=== PATIENT | male | born 1960 | race Caucasian/White ===

== ENCOUNTER 2018-02-18 06:35 | Inpatient (IN) | payer MEDICARE ==
[~2018-02-18] VITALS: Ht 180.3 cm; Wt 66.9 kg
[~2018-02-18 06:35] MED LIST: ARI2 PO; ASPI-1471 PO; ASPI81TA94 PO; ATR80PT PO; DOCU-202 PO; DOXY150T6 PO; FINA5TAB67 PO; INSU100C10 SQ; INSU100C14 SQ; INSU100I30 SQ; INSU100I30 SUBQ; INSU100V24 SQ; LANI ASDIRECTED; LANI SUBQ; LEVO-85 PO; LISI-374 PO; NO MEDS; OMEP-125 PO; OMEP-137 PO; PER PO; QUET300T PO; QUET400T PO; RANI-366 PO; TAMS0.4C25 PO; TAMS0.4C70 PO
--- NOTE | 2018-02-18 06:52 | ER Report ---
History and Physical Time Seen By MD: 06:51 Hx. of Stated Complaint: PATIENT STATES HE HAS BEEN HAVING PAIN IN HIS ABDOMEN, BILAT FLANKS, AND IN EPIGASTRIC AREA. PATIENT STATES HAVING NAUSEA, VOMITING AND DIARRHEA, HASN'T BEEN ABLE TO KEEP ANYTHING DOWN. HPI/ROS CHIEF COMPLAINT: Bilateral flank pain, lower abdominal pain, nausea, vomiting, diarrhea HISTORY OF PRESENT ILLNESS: Patient is a 57-year-old male here with complaints of bilateral flank pain, abdominal pain for the past several days. Patient has a history of diabetes, heart failure, intermittent angina. He reports that he has been depressed and has not been taking his medications since per his report. He reports intermittent chest pains which seem to be chronic in nature. He does self cath, and reports decreased appetite, intermittent fevers and chills, nausea and vomiting. Patient reports that he did eat yesterday and was unable to keep food down. He does report worsening fatigue, weakness but denies focal neurological deficits. He does admit to dyspnea especially on exertion. At baseline he usually takes insulin but has not been taking this since . Denies suicidal or homicidal ideations, thoughts of self- harm, aspirin or Tylenol ingestions. REVIEW OF SYSTEMS: Constitutional: + fever, + chills, + gen malaise Eyes: No discharge. ENT: No sore throat. Cardiovascular: + intermittent chest pain, no palpitations. Respiratory: No cough, + shortness of breath. Gastrointestinal: + lower abdominal pain and midepigastric pain, + nausea, + vomiting. Genitourinary: + self cath at baseline, no hematuria Musculoskeletal: + b/l flank pain Skin: No rashes. Neurological: No headache. Allergies: Coded Allergies: oyster extract (Verified Allergy, Intermediate, RASH, 02/07/16) Penicillins (Verified Allergy, Mild, 02/07/16) Home Meds Active Scripts Tamsulosin Hcl (TAMSULOSIN HCL) 0.4 Mg Cap.er.24h, 0.4 MG PO QDAY, #30 CAP 0 Refills Prov:ARSH JOEL MD 02/07/16 Insulin Glargine (LANTUS) 100 Unit/Ml Soln, 0 ASDIRECTED QAM, #3 CART 0 Refills Take 10 units SubQ in the morning and 20 units SubQ in the evening Prov:ARSH JOEL MD 02/07/16 Insulin Aspart (NOVOLOG) 100 Unit/1 Ml Cartridge, 100 UNIT SQ ACHS, #3 CART 0 Refills Take insulin dose based on your sliding scale at meals and at bedtime Prov:ARSH JOEL MD 02/07/16 Aripiprazole (ABILIFY) 2 Mg Tablet, 2 MG PO QDAY, #30 TAB 0 Refills Prov:ARSH JOEL MD 02/07/16 Quetiapine Fumarate (QUETIAPINE FUMARATE) 300 Mg Tablet, 300 MG PO QHS, #30 TAB 0 Refills Prov:ARSH JOEL MD 02/07/16 Reported Medications Ranitidine Hcl (ZANTAC) 150 Mg Tablet, 150 MG PO PRN PRN for INDIGESTION, TAB 12/06/15 Insulin Aspart (NOVOLOG) 100 Unit/1 Ml Cartridge, SQ SS 12/06/15 Tamsulosin Hcl (TAMSULOSIN HCL) 0.4 Mg Cap.er.24h, 0.4 MG PO, CAP 11/23/15 Lisinopril (LISINOPRIL) 40 Mg Tablet, 40 MG PO QDAY, TAB 11/23/15 Aspirin (ASPIRIN) 81 Mg Tab.chew, 81 MG PO QDAY, TAB.CHEW 11/23/15 Quetiapine Fumarate (QUETIAPINE FUMARATE) 300 Mg Tablet, 400 MG PO 11/04/15 Aripiprazole (ABILIFY) 2 Mg Tablet, 2 MG PO QDAY, TAB Start taking every morning beginning 11/15/2015 11/04/15 Insulin Glargine (LANTUS) 100 Unit/Ml Soln, 10 UNIT SUBQ QAM, ML 11/04/15 Insulin Glargine (LANTUS) 100 Unit/Ml Soln, 20 UNIT SUBQ QPM, ML 10/30/15 Hx Smoking: Yes (1/2 ppd x 5 years) Smoking Status: Current: Every Day Smoker Exposure to Second Hand Smoke?: Yes Hx Substance Use Disorder: Yes Hx Alcohol Use: Yes Constitutional Vital Sign - Last 24 Hours 02/18/18 02/18/18 06:39 07:28 Temp 97.5 Pulse 103 Resp 24 B/P (MAP) 180/99 Pulse Ox 98 O2 Delivery Room Air O2 Flow Rate 2.5 Physical Exam General Appearance: The patient is alert, has no immediate need for airway protection and no signs of toxicity. NAD, + fatigued Eyes: + right glass eye, left eye pupil equal and reactive ENT, Mouth: Mucous membranes are dry Respiratory: There are no retractions, lungs are clear to auscultation. Cardiovascular: Tachy, regular rhythm Gastrointestinal: Abdomen is soft and + diffusely, no masses, bowel sounds normal. Neurological: No focal neuro deficits Skin: Warm and dry, no rashes. Musculoskeletal: Neck is supple non tender, + b/l flank tenderness on palpation Extremities are nontender, nonswollen and have full range of motion. DIFFERENTIAL DIAGNOSIS: After history and physical exam differential diagnosis was considered for hyperglycemia, dehydration, viral syndrome,abdominal pain including but not limited to appendicitis, cholecystitis, gastritis and urinary tract infection, angina, pneumonia Medical Decision Making Data Points Result Diagram: 02/18/18 0716 02/18/18 0716 Laboratory Hematology Test 02/18/18 00:00 02/18/18 07:15 02/18/18 07:16 02/18/18 07:27 Salicylates Level < 10 mg/L Salicylate Last Dose Date unknown Acetaminophen Level < 10 ug/ml Serum Alcohol < 10 mg/dl Whole Blood Glucose 429 mg/DL (75-110) Red Blood Count 4.42 M/uL (4.00-5.60) Mean Corpuscular Volume 86.6 fL (80.0-96.0) Mean Corpuscular Hemoglobin 29.4 pg (26.0-33.0) Mean Corpuscular Hemoglobin Concent 33.9 g/dL (32.0-36.0) Red Cell Distribution Width 15.8 % (11.5-14.5) Mean Platelet Volume 7.7 fL (7.2-11.1) Neutrophils (%) (Auto) 65.7 % (39.4-72.5) Lymphocytes (%) (Auto) 23.5 % (17.6-49.6) Monocytes (%) (Auto) 8.1 % (4.1-12.4) Eosinophils (%) (Auto) 1.8 % (0.4-6.7) Basophils (%) (Auto) 0.9 % (0.3-1.4) Nucleated RBC Relative Count (auto) 0.0 /100WBC Neutrophils # (Auto) 6.1 K/uL (2.0-7.4) Lymphocytes # (Auto) 2.2 K/uL (1.3-3.6) Monocytes # (Auto) 0.8 K/uL (0.3-1.0) Eosinophils # (Auto) 0.2 K/uL (0.0-0.5) Basophils # (Auto) 0.1 K/uL (0.0-0.1) Nucleated RBC Absolute Count (auto) 0.00 K/uL Blood Gas Patient Temperature 97.5 DEGREES Venous Blood pH 7.35 (7.31-7.41) Venous Blood Partial Pressure CO2 35 mmHg Venous Blood Partial Pressure O2 36 mmHg Venous Blood HCO3 19 mmol/L Venous Blood Oxygen Saturation 68 % Venous Blood Base Excess -6 mmol/L Oxygen Liters/Minute Room air Sodium Level 135 mmol/L (137-145) Potassium Level 4.4 mmol/L (3.5-5.0) Chloride Level 99 mmol/L (98-107) Carbon Dioxide Level 22 mmol/L (22-30) Blood Urea Nitrogen 65 mg/dl (9-21) Creatinine 2.80 mg/dl (0.66-1.25) Glomerular Filtration Rate Calc 23.5 Random Glucose 492 mg/dl (75-110) Osmolality 327 mOSM/K (275-295) Lactate 2.2 mmol/L (0.7-2.1) Calcium Level 10.0 mg/dl (8.4-10.2) Total Bilirubin 0.3 mg/dl (0.2-1.3) Aspartate Amino Transf (AST/SGOT) 28 U/L (0-35) Alanine Aminotransferase (ALT/SGPT) 13 U/L (0-56) Alkaline Phosphatase 216 U/L (0-126) Troponin I 0.025 ng/ml Total Protein 8.9 g/dl (6.3-8.2) Albumin 4.1 g/dl (3.5-5.0) Lipase 475 U/L (23-300) Acetone, Qualitative Negative Urine Color Straw Urine Clarity Clear Urine pH 6.0 pH (4.8-9.5) Urine Specific [place] 1.011 Urine Protein 100 mg/dL (NEGATIVE) Urine Glucose (UA) 500 mg/dL (NEGATIVE) Urine Ketones Negative mg/dL (NEGATIVE) Urine Blood Small (NEGATIVE) Urine Nitrite Negative (NEGATIVE) Urine Bilirubin Negative (NEGATIVE) Urine Urobilinogen Negative mg/dL (0.2-1.9) Urine Leukocyte Esterase Small (NEGATIVE) Urine RBC 3 /HPF (0-2/HPF) Urine WBC 39 /HPF (0-5/HPF) Urine Squamous Epithelial Cells None /LPF (</=FEW) Urine Bacteria Few /HPF (NONE-FEW) Urine Mucus None /HPF (NONE-FEW) Urine Opiates Screen Negative Urine Barbiturates Screen Negative Ur Tricyclic Antidepressants Screen Negative Urine Phencyclidine Screen Negative Urine Amphetamines Screen Positive Urine Benzodiazepines Screen Negative Urine Cocaine Screen Negative Urine Cannabinoids Screen Negative Chemistry Test 02/18/18 00:00 02/18/18 07:15 02/18/18 07:16 02/18/18 07:27 Salicylates Level < 10 mg/L Salicylate Last Dose Date unknown Acetaminophen Level < 10 ug/ml Serum Alcohol < 10 mg/dl Whole Blood Glucose 429 mg/DL (75-110) White Blood Count 9.3 k/uL (4.5-11.0) Red Blood Count 4.42 M/uL (4.00-5.60) Hemoglobin 13.0 g/dL (14.0-18.0) Hematocrit 38.3 % (42.0-52.0) Mean Corpuscular Volume 86.6 fL (80.0-96.0) Mean Corpuscular Hemoglobin 29.4 pg (26.0-33.0) Mean Corpuscular Hemoglobin Concent 33.9 g/dL (32.0-36.0) Red Cell Distribution Width 15.8 % (11.5-14.5) Platelet Count 321 K/uL (150-450) Mean Platelet Volume 7.7 fL (7.2-11.1) Neutrophils (%) (Auto) 65.7 % (39.4-72.5) Lymphocytes (%) (Auto) 23.5 % (17.6-49.6) Monocytes (%) (Auto) 8.1 % (4.1-12.4) Eosinophils (%) (Auto) 1.8 % (0.4-6.7) Basophils (%) (Auto) 0.9 % (0.3-1.4) Nucleated RBC Relative Count (auto) 0.0 /100WBC Neutrophils # (Auto) 6.1 K/uL (2.0-7.4) Lymphocytes # (Auto) 2.2 K/uL (1.3-3.6) Monocytes # (Auto) 0.8 K/uL (0.3-1.0) Eosinophils # (Auto) 0.2 K/uL (0.0-0.5) Basophils # (Auto) 0.1 K/uL (0.0-0.1) Nucleated RBC Absolute Count (auto) 0.00 K/uL Blood Gas Patient Temperature 97.5 DEGREES Venous Blood pH 7.35 (7.31-7.41) Venous Blood Partial Pressure CO2 35 mmHg Venous Blood Partial Pressure O2 36 mmHg Venous Blood HCO3 19 mmol/L Venous Blood Oxygen Saturation 68 % Venous Blood Base Excess -6 mmol/L Oxygen Liters/Minute Room air Glomerular Filtration Rate Calc 23.5 Osmolality 327 mOSM/K (275-295) Lactate 2.2 mmol/L (0.7-2.1) Calcium Level 10.0 mg/dl (8.4-10.2) Total Bilirubin 0.3 mg/dl (0.2-1.3) Aspartate Amino Transf (AST/SGOT) 28 U/L (0-35) Alanine Aminotransferase (ALT/SGPT) 13 U/L (0-56) Alkaline Phosphatase 216 U/L (0-126) Troponin I 0.025 ng/ml Total Protein 8.9 g/dl (6.3-8.2) Albumin 4.1 g/dl (3.5-5.0) Lipase 475 U/L (23-300) Acetone, Qualitative Negative Urine Color Straw Urine Clarity Clear Urine pH 6.0 pH (4.8-9.5) Urine Specific [place] 1.011 Urine Protein 100 mg/dL (NEGATIVE) Urine Glucose (UA) 500 mg/dL (NEGATIVE) Urine Ketones Negative mg/dL (NEGATIVE) Urine Blood Small (NEGATIVE) Urine Nitrite Negative (NEGATIVE) Urine Bilirubin Negative (NEGATIVE) Urine Urobilinogen Negative mg/dL (0.2-1.9) Urine Leukocyte Esterase Small (NEGATIVE) Urine RBC 3 /HPF (0-2/HPF) Urine WBC 39 /HPF (0-5/HPF) Urine Squamous Epithelial Cells None /LPF (</=FEW) Urine Bacteria Few /HPF (NONE-FEW) Urine Mucus None /HPF (NONE-FEW) Urine Opiates Screen Negative Urine Barbiturates Screen Negative Ur Tricyclic Antidepressants Screen Negative Urine Phencyclidine Screen Negative Urine Amphetamines Screen Positive Urine Benzodiazepines Screen Negative Urine Cocaine Screen Negative Urine Cannabinoids Screen Negative Toxicology Test 02/18/18 00:00 02/18/18 07:16 02/18/18 07:27 Salicylates Level < 10 mg/L Salicylate Last Dose Date unknown Acetaminophen Level < 10 ug/ml Serum Alcohol < 10 mg/dl Acetone, Qualitative Negative Urine Opiates Screen Negative Urine Barbiturates Screen Negative Ur Tricyclic Antidepressants Screen Negative Urine Phencyclidine Screen Negative Urine Amphetamines Screen Positive Urine Benzodiazepines Screen Negative Urine Cocaine Screen Negative Urine Cannabinoids Screen Negative Urinalysis Test 02/18/18 07:27 Urine Color Straw Urine Clarity Clear Urine pH 6.0 pH (4.8-9.5) Urine Specific [place] 1.011 Urine Protein 100 mg/dL (NEGATIVE) Urine Glucose (UA) 500 mg/dL (NEGATIVE) Urine Ketones Negative mg/dL (NEGATIVE) Urine Blood Small (NEGATIVE) Urine Nitrite Negative (NEGATIVE) Urine Bilirubin Negative (NEGATIVE) Urine Urobilinogen Negative mg/dL (0.2-1.9) Urine Leukocyte Esterase Small (NEGATIVE) Urine RBC 3 /HPF (0-2/HPF) Urine WBC 39 /HPF (0-5/HPF) Urine Squamous Epithelial Cells None /LPF (</=FEW) Urine Bacteria Few /HPF (NONE-FEW) Urine Mucus None /HPF (NONE-FEW) EKG/Imaging EKG Interpretation Test Reason : CP and SOB Blood Pressure : / mmHG Vent. Rate : 103 BPM Atrial Rate : 103 BPM P-R Int : 164 ms QRS Dur : 082 ms QT Int : 348 ms P-R-T Axes : 088 093 083 degrees QTc Int : 455 ms Sinus tachycardia Right atrial enlargement Rightward axis Pulmonary disease pattern Abnormal ECG When compared with ECG of 09-DEC-2015 10:19, No significant change was found Confirmed by ROBYN KRISHNAMURTHY ([id number]) on 02/18/2018 9:20:39 AM Referred By: Confirmed By:ROBYN KRISHNAMURTHY Monitor Interpretation: Sinus Tachycardia Imaging ABDOMEN/PELVIS W/O CONTRAST HISTORY: Abdominal pain and flank pain. TECHNIQUE: CT abdomen and pelvis without intravenous contrast. One of the following dose optimization techniques was utilized in the performance of this exam: Automated exposure control; adjustment of the mA and/or kV according to the patient's size; or use of an iterative reconstruction technique. Specific details can be referenced in the facility's radiology CT exam operational policy. CONTRAST: None. Please note, lack of IV contrast limits evaluation of solid organs. COMPARISON: None available. FINDINGS: Visualized lung bases: Negative. Hepatobiliary: Gallbladder surgically absent. Otherwise negative. Spleen: Negative. Adrenals: Negative. Pancreas: Negative. Kidneys/: Moderate to severe bilateral hydroureteronephrosis extending to the UVJ's. Mild/moderate heterogeneous bladder wall thickening with bladder trabeculation and multiple small bladder diverticula. Prostate is normal in size. No gross focal bladder mass. No visualized urolithiasis. There is mild stranding surrounding the kidneys, left greater than right. GI: Mild sigmoid diverticulosis without evidence for diverticulitis. Otherwise negative. Appendix is unremarkable. Vessels/spaces/nodes: Minimal atherosclerosis. No visualized lymphadenopathy. Bones/soft tissues: Negative. IMPRESSION: 1. Moderate to severe bilateral hydroureteronephrosis which is likely related to chronic bladder outlet obstruction given bladder trabeculation, wall thickening, and small diverticula. Etiology for the obstruction is unknown. The prostate is grossly normal in size. 2. Mild perinephric stranding, left greater than right. All this is nonspecific, recommend correlation with urinalysis to exclude infection. 3. No additional findings to explain the patient's clinical symptoms. 4. Incidental/chronic findings, as above. 2 VIEWS CHEST INDICATION: History of anxiety, shortness of breath. Smoker COMPARISON: X-ray examination of the chest October 2015 FINDINGS: Cardiac silhouette is within normal limits. There is no evidence of the new infiltrate, consolidation, effusion or pneumothorax. Mild spondylotic changes are seen without acute bony finding. Overall, stable exam. IMPRESSION: 1. No acute cardiopulmonary process. ED Course/Re-evaluation ED Course Patient is a 57-year-old male here with complaints of intermittent chest pains, shortness breath, diffuse abdominal pains, bilateral flank pain, nausea, vomiting, medication noncompliance since , depression without suicidal or homicidal ideations. Patient reports decreased appetite, decreased b y mouth intake, abdominal flank pains which started 3-4 days ago. Patient is a diabetic, insulin dependent with a history of heart failure and coronary artery disease. Patient reports that he has not been taking his medications since . Patient reports general malaise, fatigue, dehydration. He does self catheterize at baseline and denies blood in the stools or urine. He denies recent alcohol or drug use. Patient was noted to have elevated lipase, poor kidney function with bilateral hydronephrosis and likely bladder outlet obstruction with possible genitourinary infection. He was also noted to be hyperglycemic in the setting of diabetes and medication noncompliance. Patient was started on an insulin drip, given gentle hydration due to history of heart failure. I discussed the patient with Dr. Krishnamurthy who accepted the patient to hospitalist service for optimization. Chest x-ray showed no acute findings. Patient was stable at time of admission. Decision to Disposition Date: Feb 18, 2018 Decision to Disposition Time: 09:31 Depart Departure Latest Vital Signs Vital Signs Date Time Temp Pulse Resp B/P (MAP) Pulse Ox O2 Delivery O2 Flow Rate FiO2 02/18/18 07:28 2.5 02/18/18 06:39 97.5 103 24 180/99 98 Room Air Impression: Primary Impression: Type 2 diabetes mellitus with hyperglycemia Additional Impressions: UTI (urinary tract infection) Nausea & vomiting Hydronephrosis Condition: Improved Disposition: Admitted from ER Referrals: DIANN WOOTEN DO (PCP) Problem Qualifiers COREY KAYE DO Feb 18, 2018 06:52
[2018-02-18] MEDS ORDERED: NS(*) 0.9% 1000 ML BAG 1,000 ML IV ONE ×2 (06:59→08:45)
[2018-02-18] MEDS ORDERED: ONDANSETRON 4 MG/2 ML VIAL IVP ONE ×2 (07:00→08:45)
[2018-02-18] MEDS ORDERED: fentaNYL CITR 100 MCG/2 ML AMP IVP ONE (07:00)
--- NOTE | 2018-02-18 07:04 | EKG ---
FACILITY: [facility] - [place] PATIENT NAME: RACHEL GIBSON : [id number] MR: [id number] V: [id number] EXAM DATE: ORDERING PHYSICIAN: COREY KAYE TECHNOLOGIST: Test Reason : CP and SOB Blood Pressure : / mmHG Vent. Rate : 103 BPM Atrial Rate : 103 BPM P-R Int : 164 ms QRS Dur : 082 ms QT Int : 348 ms P-R-T Axes : 088 093 083 degrees QTc Int : 455 ms Sinus tachycardia Right atrial enlargement Rightward axis Pulmonary disease pattern Abnormal ECG When compared with ECG of 09-DEC-2015 10:19, No significant change was found Confirmed by ROBYN KRISHNAMURTHY ([id number]) on 02/18/2018 9:20:39 AM Referred By: Confirmed By:ROBYN KRISHNAMURTHY
[2018-02-18] MEDS ORDERED: IOPAMIDOL 76% 100 ML INFUS BTL 0 ML ONE (07:14)
[2018-02-18 07:26] LABS: PLATELET COUNT, AUTOMATED 321 K/uL (150-450)
[2018-02-18] MEDS ORDERED: INS HUM REG* 100 U/ML(ER ONLY) 100 UNIT in NS(*) 0.9% 100 ML BAG 99 ML IVPB ONE (07:40)
[2018-02-18] MEDS ORDERED: LORazepam 2 MG/ML VIAL IVP ONE (08:35)
--- NOTE | 2018-02-18 09:11 | RADIOLOGY IMAGING REPORT ---
[facility] PATIENT NAME: Chivo Wolff : 1960 MR: [id number] V: [id number] EXAM DATE: ORDERING PHYSICIAN: COREY KAYE TECHNOLOGIST: Location: [facility] Patient: Chivo Wolff : 1960 Visit/Account:[id number] Date of Sevice: 02/18/2018 2 VIEWS CHEST INDICATION: History of anxiety, shortness of breath. Smoker COMPARISON: X-ray examination of the chest October 2015 FINDINGS: Cardiac silhouette is within normal limits. There is no evidence of the new infiltrate, consolidatio n, effusion or pneumothorax. Mild spondylotic changes are seen without acute bony finding. Overall, stable exam. IMPRESSION: 1. No acute cardiopulmonary process. Report Dictated By: Brenton Parker MD at 02/18/2018 9:05 AM Report E-Signed By: Brenton Parker MD at 02/18/2018 9:06 AM WSN:[id number]
--- NOTE | 2018-02-18 09:22 | RADIOLOGY IMAGING REPORT ---
FACILITY: [facility] PATIENT NAME: Chivo Wolff : 1960 MR: [id number] V: [id number] EXAM DATE: ORDERING PHYSICIAN: COREY KAYE TECHNOLOGIST: Location: [facility] [place] Patient: Chivo Wolff : 1960 Visit/Account:[id number] Date of Sevice: 02/18/2018 ABDOMEN/PELVIS W/O CONTRAST HISTORY: Abdominal pain and flank pain. TECHNIQUE: CT abdomen and pelvis without intravenous contrast. One of the following dose optimization techniques was utilized in the performance of this exam: Autom ated exposure control; adjustment of the mA and/or kV according to the patient's size; or use of an i terative reconstruction technique. Specific details can be referenced in the facility's radiology C T exam operational policy. CONTRAST: None. Please note, lack of IV contrast limits evaluation of solid organs. COMPARISON: None available. FINDINGS: Visualized lung bases: Negative. Hepatobiliary: Gallbladder surgically absent. Otherwise negative. Spleen: Negative. Adrenals: Negative. Pancreas: Negative. Kidneys/: Moderate to severe bilateral hydroureteronephrosis extending to the UVJ's. Mild/moderate heterogeneous bladder wall thickening with bladder trabeculation and multiple small bladder divertic liya. Prostate is normal in size. No gross focal bladder mass. No visualized urolithiasis. There is mi ld stranding surrounding the kidneys, left greater than right. GI: Mild sigmoid diverticulosis without evidence for diverticulitis. Otherwise negative. Appendix is unremarkable. Vessels/spaces/nodes: Minimal atherosclerosis. No visualized lymphadenopathy. Bones/soft tissues: Negative. IMPRESSION: 1. Moderate to severe bilateral hydroureteronephrosis which is likely related to chronic bladder outl et obstruction given bladder trabeculation, wall thickening, and small diverticula. Etiology for the obstruction is unknown. The prostate is grossly normal in size. 2. Mild perinephric stranding, left greater than right. All this is nonspecific, recommend correlatio n with urinalysis to exclude infection. 3. No additional findings to explain the patient's clinical symptoms. 4. Incidental/chronic findings, as above. Report Dictated By: Felton Thurston MD at 02/18/2018 9:11 AM Report E-Signed By: Felton Thurston MD at 02/18/2018 9:17 AM WSN:[id number]
[2018-02-18 09:58] VITALS: BP 131/102
[2018-02-18] MEDS ORDERED: RANITIDINE HCL 150 MG TAB PO PRN (11:15)
--- NOTE | 2018-02-18 11:26 | History & Physical ---
History of Present Illness Chief Complaint This patient presented to the emergency room complaining of not feeling good overall. He reports that he has not taken any of his medications since . History Problems: (1) Diabetic nephropathy Status: Acute (2) Benign hypertension Status: Chronic (3) Hyperlipemia Status: Chronic (4) HTN (hypertension) Status: Chronic (5) Porcelain gallbladder Status: Resolved (6) Bipolar disorder Status: Chronic (7) T2DM (type 2 diabetes mellitus) Status: Chronic (8) Hydronephrosis Status: Acute Home Meds Active Scripts Tamsulosin Hcl (TAMSULOSIN HCL) 0.4 Mg Cap.er.24h, 0.4 MG PO QDAY, #30 CAP 0 Refills Prov:ARSH JOEL MD 02/07/16 Insulin Glargine (LANTUS) 100 Unit/Ml Soln, 0 ASDIRECTED QAM, #3 CART 0 Refills Take 10 units SubQ in the morning and 20 units SubQ in the evening Prov:ARSH JOEL MD 02/07/16 Insulin Aspart (NOVOLOG) 100 Unit/1 Ml Cartridge, 100 UNIT SQ ACHS, #3 CART 0 Refills Take insulin dose based on your sliding scale at meals and at bedtime Prov:ARSH JOEL MD 02/07/16 Aripiprazole (ABILIFY) 2 Mg Tablet, 2 MG PO QDAY, #30 TAB 0 Refills Prov:ARSH JOEL MD 02/07/16 Quetiapine Fumarate (QUETIAPINE FUMARATE) 300 Mg Tablet, 300 MG PO QHS, #30 TAB 0 Refills Prov:ARSH JOEL MD 02/07/16 Reported Medications Ranitidine Hcl (ZANTAC) 150 Mg Tablet, 150 MG PO PRN PRN for INDIGESTION, TAB 12/06/15 Insulin Aspart (NOVOLOG) 100 Unit/1 Ml Cartridge, SQ SS 12/06/15 Tamsulosin Hcl (TAMSULOSIN HCL) 0.4 Mg Cap.er.24h, 0.4 MG PO, CAP 11/23/15 Lisinopril (LISINOPRIL) 40 Mg Tablet, 40 MG PO QDAY, TAB 11/23/15 Aspirin (ASPIRIN) 81 Mg Tab.chew, 81 MG PO QDAY, TAB.CHEW 11/23/15 Quetiapine Fumarate (QUETIAPINE FUMARATE) 300 Mg Tablet, 400 MG PO 11/04/15 Aripiprazole (ABILIFY) 2 Mg Tablet, 2 MG PO QDAY, TAB Start taking every morning beginning 11/15/2015 11/04/15 Insulin Glargine (LANTUS) 100 Unit/Ml Soln, 10 UNIT SUBQ QAM, ML 11/04/15 Insulin Glargine (LANTUS) 100 Unit/Ml Soln, 20 UNIT SUBQ QPM, ML 10/30/15 Allergies: Coded Allergies: oyster extract (Verified Allergy, Intermediate, RASH, 02/07/16) Penicillins (Verified Allergy, Mild, 02/07/16) Patient History: Diabetes mellitus in brother MOTHER, BROTHER OR SISTER FH: diabetes mellitus CHILD FH: liver cancer FH: obesity CHILD Hx Smoking: Yes (1/2 ppd x 5 years) Smoking Status: Current: Every Day Smoker Exposure to Second Hand Smoke?: Yes Caffeine Intake: Coffee, Soda Caffeine/Cups Per Day: 3 cups coffee, 1-2 diet soda/day Hx Alcohol Use: Yes (01/31/18 ) Alcohol Used: Beer, Liquor Alcohol Withdrawl Symptoms: Agitation Hx Substance Use Disorder: Yes (meth one week ago ) Social Drug Use: Occasional Social Drugs: Meth, Amphetamines, Cocaine History of IV Drug Use: No Review of Systems All Systems Reviewed/Normal: Yes Exam Vital Signs Vital Signs Date Time Temp Pulse Resp B/P (MAP) Pulse Ox O2 Delivery O2 Flow Rate FiO2 02/18/18 10:53 97 02/18/18 10:22 Room Air 02/18/18 09:58 97.8 93 14 131/102 (112) 2.0 Neuro: No Gross deficits Eyes: PERRLA Cardiovascular: Regular Rate and Rhythm Respiratory: Clear to Auscultation GI: Abd Soft and Non-Tender Extremities: No Edema Integumentary: No Cyanosis Medical Decision Making Data Points Result Diagram: 02/18/1871502/18/18715 EKG / Imaging Imaging CT scan reviewed. Assessment and Plan Problems: (1) ARF (acute renal failure) Assessment & Plan: He does have an elevated creatinine above his baseline. We have started him on IV fluids. (2) Hydronephrosis Status: Acute Assessment & Plan: He does have bilateral hydronephrosis, but this appears to be a chronic issue that dates back to at least 2016. (3) Type 2 diabetes mellitus with hyperglycemia Status: Acute Assessment & Plan: He is supposed to be on chronic treatment with Lantus and Novolog. We have started him back on his previous dose of Lantus and placed him on sliding scale level #3. (4) Benign hypertension Status: Chronic Assessment & Plan: He is on chronic treatment with lisinopril, which has been held secondary to his renal function. (5) Bipolar disorder Status: Chronic Assessment & Plan: He is on chronic treatment with quetiapine. Venous Thromboembolism Antithrombotics Is Pt On Any Antithrombotics?: No Exam Sepsis Risk: No Definite Risk ROBYN KRISHNAMURTHY DO Feb 18, 2018 11:26
[2018-02-18] MEDS: NS(*) 0.9% 1000 ML BAG 1,000 ML IV PRN ×2 (11:56→23:11)
[2018-02-18] MEDS: INSULIN HUM LISPRO 100 UN/ML 3 ML VIAL SUBQ PRN ×3 (12:18→20:30)
[2018-02-18] MEDS ORDERED: FOLI-68 PO (13:28)
[2018-02-18] MEDS ORDERED: INSU300I SUBQ (13:28)
[2018-02-18] MEDS ORDERED: FURO20TA19 PO (13:28)
[2018-02-18] MEDS ORDERED: MULT-1167 PO (13:28)
[2018-02-18] MEDS ORDERED: CAR6.25 PO (13:28)
[2018-02-18] MEDS ORDERED: FINA5TAB67 PO (13:28)
[2018-02-18] MEDS ORDERED: INSULIN GLARGINE 100 U/ML 3 ML PEN SUBQ SCH (17:00)
[2018-02-18] MEDS: ACETAMINOPHEN 500 MG TAB PO PRN (18:31)
[2018-02-18 18:55] VITALS: BP 143/94
[2018-02-18] MEDS ORDERED: QUEtiapine FUM 100 MG TAB PO SCH (21:00)
[2018-02-19 01:57] VITALS: BP 114/69
[2018-02-19 05:30] LABS: PLATELET COUNT, AUTOMATED 232 K/uL (150-450)
[2018-02-19 07:19] VITALS: BP 148/82
[2018-02-19] MEDS ORDERED: ARIPiprazole 2 MG TAB PO SCH (09:00)
[2018-02-19] MEDS ORDERED: TAMSULOSIN HCL 0.4 MG CAP PO SCH (09:00)
[2018-02-19] MEDS: ASPIRIN 81 MG CHEW PO SCH (09:08)
[2018-02-19] MEDS: ACETAMINOPHEN 500 MG TAB PO PRN ×2 (09:08→19:19)
[2018-02-19] MEDS: ENOXAPARIN 40 MG/0.4ML SYR SC SCH (09:09)
[2018-02-19] MEDS: INSULIN GLARGINE 100 U/ML 3 ML PEN SUBQ SCH (09:09)
--- NOTE | 2018-02-19 10:46 | Hospitalist Progress Note ---
Subjective Progress Notes Subjective He reports overall improvement. However, he is very sleepy this morning secondary to the Seroquel being restarted last night. Physical Exam Vital Signs Date Time Temp Pulse Resp B/P (MAP) Pulse Ox O2 Delivery O2 Flow Rate FiO2 02/19/18 07:19 97.0 78 16 148/82 (104) 96 Room Air 02/18/18 09:58 2.0 Intake and Output 02/19/18 07:00 Intake Total 2998.5 ml Output Total 1720 ml Balance 1278.5 ml Intake Oral 970 ml IV Total 2028.5 ml Output Urine Total 1720 ml # Voids 5 General Appearance: Alert (Initially, he was fighting sleep, but became more alert), Awake, No Acute Distress Neuro: No Gross deficits (Answers questions appropriately. Normal affect. He reports that the voices he constantly hears is present, but not bothersome. He knows why he is in the hospital and gives accurate medical history. He is calm and cooperative.) Cardiovascular: Regular Rate and Rhythm Respiratory: Clear to Auscultation GI: Other (Soft, non-distended. He does have some suprapubic tenderness with palpation.) : Other (Bilateral flank tenderness.) Extremities: No Edema Integumentary: No Jaundice, No Cyanosis Result Diagram: 02/19/1851702/19/18517 Monitor Interpretation: Sinus Tachycardia Assessment and Plan Problems: (1) ARF (acute renal failure) Assessment & Plan: He presented with bilateral flank pain and abdominal pain for a couple of days. His creatinine was elevated to 2.8, osmolality was elevated at 327, lactate was elevated at 2.2 and he had worsening bilateral hydronephrosis on CT. He has been hydrated with 3 liters of IVF and is creatinine is down to 2.0. His creatinine was 1.6 to 1.8 in 2016. Will saline lock. See below. (2) Hydronephrosis Status: Acute Assessment & Plan: He does have bilateral hydronephrosis which is a chronic issue that dates back to at least 2016. It is thought to be related to bladder outlet obstruction. He self caths 4-5 times per day. However, the CT from admission showed worsening hydronephrosis. I spoke with Dr. Okeefe (Urology) and he recommends placing a Meneses catheter and having the patient follow up in clinic. The patient is agreeable to this plan. (3) Hyperosmolar non-ketotic state in patient with type 2 diabetes mellitus Status: Acute Assessment & Plan: Secondary to non-compliance. He stopped his Lantus over Thanksgiving. He was started back on Lantus 20 units in the evening and 10 units in the morning. However, his glucose is 102 this morning, so will stop the evening Lantus for now and decrease the SSI from level 3 to 1. (4) Bipolar disorder Status: Chronic Assessment & Plan: He is on chronic treatment with quetiapine, but stopped over Thanksgi. Dr. Foley recommends restarting at a low dose, so will change from 300mg to 50mg HS (5) Benign hypertension Status: Chronic Assessment & Plan: He is on chronic treatment with lisinopril, which has been held secondary to his renal function. (6) HFrEF (heart failure with reduced ejection fraction) Status: Chronic Assessment & Plan: He reports that his EF is about 20-30%. He denies orthopnea. Lungs are clear and no edema. He has received 2 liters of IVF, so will follow closely for symptoms of exacerbation. Will try to get the last note from his Clinician Oncology. (7) CAD (coronary artery disease) Status: Chronic Assessment & Plan: He has been started on ASA. Exam Sepsis Risk: No Definite Risk WANDA BRADSHAW MD Feb 19, 2018 10:46
[2018-02-19] MEDS: INSULIN HUM LISPRO 100 UN/ML 3 ML VIAL SUBQ PRN ×3 (11:49→20:30)
[2018-02-19 17:12] VITALS: BP_SYST 148; BP_SYST 176; BP_DIAS 82; BP_DIAS 94
[2018-02-19 19:33] VITALS: BP 183/112
[2018-02-19] MEDS: QUEtiapine FUM 25 MG TAB PO SCH (20:29)
[2018-02-19] MEDS: NS(*) 0.9% 1000 ML BAG 1,000 ML IV PRN ×2 (20:33→20:34)
[2018-02-19 23:45] VITALS: BP 131/64
[2018-02-20] MEDS: NS(*) 0.9% 1000 ML BAG 1,000 ML IV PRN ×4 (01:14→19:19)
[2018-02-20 06:56] VITALS: BP 185/103
[2018-02-20] MEDS: INSULIN HUM LISPRO 100 UN/ML 3 ML VIAL SUBQ PRN ×4 (07:32→20:07)
[2018-02-20 07:53] LABS: PLATELET COUNT, AUTOMATED 252 K/uL (150-450)
[2018-02-20] MEDS ORDERED: INFLUENZA VIRUS VAC 0.5ML SYR IM ONLY ONE (09:00)
[2018-02-20] MEDS: INSULIN GLARGINE 100 U/ML 3 ML PEN SUBQ SCH (09:28)
[2018-02-20] MEDS: ENOXAPARIN 40 MG/0.4ML SYR SC SCH (09:28)
[2018-02-20] MEDS: ASPIRIN 81 MG CHEW PO SCH (09:28)
--- NOTE | 2018-02-20 09:28 | Hospitalist Progress Note ---
Subjective Progress Notes Subjective 57M admitted for hyperglycemia, FÉLIX. LY overnight, having increased UOP after Meneses placed. Discussed we will need to continue IV fluid while postobstructive diuresis resolves. Patient Complains of: Gastrointestinal: No Nausea, No Vomiting Physical Exam Vital Signs Date Time Temp Pulse Resp B/P (MAP) Pulse Ox O2 Delivery O2 Flow Rate FiO2 02/20/18 06:56 98.1 84 17 185/103 (130) 94 Room Air 02/18/18 09:58 2.0 Intake and Output 02/20/18 07:00 Intake Total 5322 ml Output Total 3325 ml Balance 1997 ml Intake Oral 2322 ml IV Total 3000 ml Output Urine Total 3325 ml # Voids 1 General Appearance: Alert, Awake, No Acute Distress Neuro: No Gross deficits ENT: Normal Cardiovascular: Normal Rhythm & Peripheral Pulses (2/6 murmur LLS border) Respiratory: No Respiratory Distress GI: Soft and Non-Tender : Normal (+ Meneses) Musculoskeletal: No Weakness/Pain Integumentary: Skin Intact without Lesion / Mass Result Diagram: 02/20/18 0744 02/20/18 0744 Monitor Interpretation: Sinus Tachycardia Assessment and Plan Problems: (1) ARF (acute renal failure) Assessment & Plan: He presented with bilateral flank pain and abdominal pain for a couple of days. His creatinine was elevated to 2.8, osmolality was elevated at 327, lactate was elevated at 2.2 and he had worsening bilateral hydronephrosis on CT. He was hydrated with 3 liters of IVF and creatinine decreased. His creatinine was 1.6 to 1.8 in 2016. See below. (2) Hydronephrosis Status: Acute Assessment & Plan: He does have bilateral hydronephrosis which is a chronic issue that dates back to at least 2016. It is thought to be related to bladder outlet obstruction. He self caths 4-5 times per day. However, the CT from admission showed worsening hydronephrosis. I spoke with Dr. Okeefe (Urology) and he recommends placing a Meneses catheter and having the patient follow up in clinic. The patient is agreeable to this plan. Ongoing postobstructive diuresis, continue IV fluids and UOP measurements. (3) Hyperosmolar non-ketotic state in patient with type 2 diabetes mellitus Status: Acute Assessment & Plan: Secondary to non-compliance. He stopped his Lantus over Thanksgiving. He was started back on Lantus 20 units in the evening and 10 units in the morning. However, his glucose was low on AM checks, so will stopped evening Lantus for now and decrease the SSI from level 3 to 1. (4) Bipolar disorder Status: Chronic Assessment & Plan: He is on chronic treatment with quetiapine, but stopped over Thanksgiving. Dr. Foley recommends restarting at a low dose, so will change from 300mg to 50mg HS (5) Benign hypertension Status: Chronic Assessment & Plan: He is on chronic treatment with lisinopril, which has been held secondary to his renal function. (6) HFrEF (heart failure with reduced ejection fraction) Status: Chronic Assessment & Plan: He reports that his EF is about 20-30%. He denies orthopnea. Lungs are clear and no edema. He has received 2 liters of IVF, so will follow closely for symptoms of exacerbation. Will try to get the last note from his Manual Qa Tester. Per patient he has refused ICD placement. (7) CAD (coronary artery disease) Status: Chronic Assessment & Plan: He has been started on ASA. Exam Sepsis Risk: No Definite Risk MENDIETA NETTE DIAS DO Feb 20, 2018 09:28
[2018-02-20 11:31] VITALS: BP 180/111
[2018-02-20 15:53] VITALS: BP 177/102
[2018-02-20 18:57] VITALS: BP 172/98
[2018-02-20] MEDS: QUEtiapine FUM 25 MG TAB PO SCH (20:06)
[2018-02-21] MEDS: NS(*) 0.9% 1000 ML BAG 1,000 ML IV PRN (01:10)
[2018-02-21 03:45] VITALS: BP 164/88
[2018-02-21] MEDS ORDERED: LR(*) 1000 ML BAG 1,000 ML IV PRN ×3 (06:50→08:49)
[2018-02-21 07:06] VITALS: BP 175/102
[2018-02-21] MEDS: INSULIN HUM LISPRO 100 UN/ML 3 ML VIAL SUBQ PRN ×4 (07:55→21:09)
[2018-02-21] MEDS: ENOXAPARIN 40 MG/0.4ML SYR SC SCH (09:31)
[2018-02-21] MEDS: INSULIN GLARGINE 100 U/ML 3 ML PEN SUBQ SCH (09:31)
[2018-02-21] MEDS: ASPIRIN 81 MG CHEW PO SCH (09:31)
--- NOTE | 2018-02-21 10:57 | Hospitalist Progress Note ---
Subjective Progress Notes Subjective He reports "not sure" about how he is doing. He has been making statements about not actively killing himself/committing suicide, but "maybe stopping my medications and letting things go" or "wandering off in the mountains...like the [place] do". Physical Exam Vital Signs Date Time Temp Pulse Resp B/P (MAP) Pulse Ox O2 Delivery O2 Flow Rate FiO2 02/21/18 07:46 93 Room Air 02/21/18 07:06 98.3 80 20 175/102 (126) 02/18/18 09:58 2.0 Intake and Output 02/21/18 06:59 Intake Total 1840 ml Output Total 5725 ml Balance -3885 ml Intake Oral 1840 ml Output Urine Total 5725 ml General Appearance: Alert, Awake Cardiovascular: Other (Regular with systolic murmur) Respiratory: Clear to Auscultation GI: Soft and Non-Tender : No CVA Tenderness Extremities: Warm, Perfused Psych: Alert & Oriented X3 Result Diagram: 02/20/18 0744 02/21/18 0546 Assessment and Plan Problems: (1) ARF (acute renal failure) Assessment & Plan: He presented with bilateral flank and abdominal pain for a couple of days. His creatinine was elevated to 2.8 with worsening bilateral hydronephrosis on CT. He was hydrated with 3 liters of IVF and Meneses catheter placed. His creatinine has improved to 2.0 today. His baseline creatinine was 1.6 to 1.8 in 2016. (2) Hydronephrosis Status: Acute Assessment & Plan: He does have bilateral hydronephrosis which has been a chronic issue that dates back to at least 2016. It is thought to be related to bladder outlet obstruction. He self caths 4-5 times per day. However, the CT from admission showed worsening hydronephrosis. Dr. Canchola spoke with Dr. Okeefe (Urology) and he recommended placing a Meneses catheter and having the patient follow up in clinic. The patient is agreeable to this plan. He appears to have some ongoing postobstructive diuresis. Will continue IV fluids at a decreasing rate. Watch labs and UOP measurements. (3) Hyperosmolar non-ketotic state in patient with type 2 diabetes mellitus Status: Acute Assessment & Plan: Secondary to non-compliance. He stopped his Lantus over . He was started back on Lantus (10 units AM) with SSI as needed. (4) Bipolar disorder Status: Chronic Assessment & Plan: He is on chronic treatment with quetiapine, but stopped over Thanksgiving. Dr. Foley recommends restarting at a low dose, so we have changed from 300mg to 50mg at HS. Also concerned he has some acute depression. Will discuss with Psychiatry regarding further evaluation/treatment. (5) Benign hypertension Status: Chronic Assessment & Plan: He has been on chronic treatment with lisinopril, which is currently being held. (6) HFrEF (heart failure with reduced ejection fraction) Status: Chronic Assessment & Plan: He reports that his EF is about 20-30%. He denies orthopnea. Lungs are clear and no edema. He has received quite a lot of IVF, so will follow closely for symptoms of exacerbation. Will try to get the last note from his Criminal Lawyer. Per patient he has refused ICD placement. (7) CAD (coronary artery disease) Status: Chronic Assessment & Plan: He has been started on ASA. Exam Sepsis Risk: No Definite Risk YULIA MOSQUEDA MD Feb 21, 2018 10:57
--- NOTE | 2018-02-21 14:55 | Psychiatric Consult ---
History of Present Illness Requesting Physician Dr. Trenton Domingo Reason for Consult: Psychiatric Illness Reason for Consult depression History of Present Illness 57 year old man with history of type I diabetes, renal disease, neurogenic bladder, and bipolar disorder, hospitalized with medical exacerbation after stopping his medications since about . Pt denies suicidal ideation, but has expressed negativity, hopelessness, and apathy. Says to me "sometimes I just think I'll wander off into the mountains and see what happens." Expresses frustration living with medical conditions. and he about 9 months ago. He has taken seroquel 400 mg q HS for many years but is often non- compliant. Used to go to [facility] but has not been there in over a year. Has had auditory hallucinations for many years, says they do not bother him, denies command AH. Denies VH/SI. I reviewed his one prior psychiatric admission here 2 years ago, and his current presentation appears LESS depressed than he was at that time. Patient Refused Consult: No BHS - Subjective Progress Notes Subjective "I'm not depressed so why do I need to take depression medicine?" Suicidal Ideation: None Homicidal Ideation: None BHS - Objective Mental Status Exam General Appearance: Casual, Well Groomed, Good Eye Contact, Cooperative, Polite, Good Interaction Speech: Clear, Spontaneous, Normal Rate, Normal Rhythm, Normal Volume, Normal Tone Mood: Euthymic (Says "I feel fine, I'm just frustrated.") Affect: Calm, Neutral, Other (dysthymic, but did smile with me once or twice a nd joked about lunch coming up) Thought Process: Organized, Logical, Goal Directed Thought Content: No Suicidal Ideation, No Homicidal Ideation, No Delusions; Auditory Halllucinations (chronic, mild, never appeared internally preoccupied.); No Visual Hallucinations, No Thought Broadcasting, No Ideas of Reference, No Obsessions, No Compulsions, No Other Sensorium: Clear Cognition: Alert & Oriented-Person, Alert & Oriented-Place, Alert & Oriented- Time, Kjkvk-Dyyrhryn-Ktotihlrh Memory: Immediate, Recent, Remote Intelligence: Average Insight Judgment: Fair Result Diagram: 02/20/18 0744 02/21/18 0546 [facility] Assessment and Plan [id number] Encounter Date: Feb 21, 2018 [id number] Encounter Time: 12:30 Follow Up Testing Recommended: No Problems: (1) Bipolar disorder Status: Chronic Assessment & Plan: Currently depressed with passive wishes, but denies SI. I recommended he start wellbutrin for depression but he declined, also declined referrals to out-patient care. I have placed a call (with his permission) to his sister to discuss boosting out-patient supports and to gather more collateral information. Will follow up with him tomorrow for support and to encourage him to try wellbutrin. JOSE ANDREWS MD Feb 21, 2018 14:55
[2018-02-21 19:23] VITALS: BP 176/98
[2018-02-21] MEDS: ACETAMINOPHEN 500 MG TAB PO PRN (19:29)
[2018-02-21] MEDS: QUEtiapine FUM 25 MG TAB PO SCH (21:10)
[2018-02-22 04:02] VITALS: BP 143/74
[2018-02-22 05:46] LABS: PLATELET COUNT, AUTOMATED 266 K/uL (150-450)
[2018-02-22] MEDS: INSULIN HUM LISPRO 100 UN/ML 3 ML VIAL SUBQ PRN ×3 (08:01→16:51)
[2018-02-22 08:05] VITALS: BP 175/106
[2018-02-22] MEDS: ENOXAPARIN 40 MG/0.4ML SYR SC SCH (08:46)
[2018-02-22] MEDS: CARVEDILOL 6.25 MG TAB PO SCH ×2 (08:46→20:34)
[2018-02-22] MEDS: ASPIRIN 81 MG CHEW PO SCH (08:46)
[2018-02-22] MEDS: INSULIN GLARGINE 100 U/ML 3 ML PEN SUBQ SCH (08:46)
[2018-02-22] MEDS: amLODIPine BESYL(*) 5 MG TAB PO SCH (08:46)
--- NOTE | 2018-02-22 09:30 | Hospitalist Progress Note ---
Subjective Progress Notes Subjective This patient was admitted for uncontrolled diabetes. He had no acute events overnight. Patient Complains of: Cardiovascular: No: Chest Pain Respiratory: No: Shortness of Breath Physical Exam Vital Signs Date Time Temp Pulse Resp B/P (MAP) Pulse Ox O2 Delivery O2 Flow Rate FiO2 02/22/18 08:46 93 Room Air 02/22/18 08:05 98.4 82 18 175/106 (129) 02/18/18 09:58 2.0 Intake and Output 02/22/18 06:59 Intake Total 1580 ml Output Total 4375 ml Balance -2795 ml Intake Oral 1580 ml Output Urine Total 4375 ml Cardiovascular: Regular Rate and Rhythm Respiratory: Clear to Auscultation Result Diagram: 02/22/1852702/22/18527 Assessment and Plan Problems: (1) ARF (acute renal failure) Assessment & Plan: He presented with bilateral flank and abdominal pain for a couple of days. His creatinine was elevated to 2.8 with worsening bilateral hydronephrosis on CT. He was hydrated with 3 liters of IVF and Meneses catheter placed. His creatinine has improved. (2) Hydronephrosis Status: Acute Assessment & Plan: He does have bilateral hydronephrosis which has been a chronic issue that dates back to at least 2016. It is thought to be related to bladder outlet obstruction. He self caths 4-5 times per day. However, the CT from admission showed worsening hydronephrosis. Dr. Canchola spoke with Dr. Okeefe (Urology) and he recommended placing a Meneses catheter and having the patient follow up in clinic. The patient is agreeable to this plan. (3) Hyperosmolar non-ketotic state in patient with type 2 diabetes mellitus Status: Acute Assessment & Plan: Secondary to non-compliance. He has been restarted on a lower dose of Lantus. (4) Bipolar disorder Status: Chronic Assessment & Plan: He is on chronic treatment with quetiapine, but stopped over . Dr. Foley recommends restarting at a low dose, so we have changed from 300mg to 50mg at HS. Psychiatry has been following him. (5) Benign hypertension Status: Chronic Assessment & Plan: He has been on chronic treatment with lisinopril, which is currently being held. We did restart his carvedilol and added amlodipine today. (6) HFrEF (heart failure with reduced ejection fraction) Status: Chronic Assessment & Plan: He reports that his EF is about 20-30%. He denies orthopnea. Lungs are clear and no edema. He has received quite a lot of IVF, so will follow closely for symptoms of exacerbation. Will try to get the last note from his Assistant Professor Of Criminal Justice. Per patient he has refused ICD placement. (7) CAD (coronary artery disease) Status: Chronic Assessment & Plan: He has been started on ASA. Exam Sepsis Risk: No Definite Risk ROBYN KRISHNAMURTHY DO Feb 22, 2018 09:30
[2018-02-22 10:34] VITALS: Ht 180.3 cm; Wt 66.9 kg
--- NOTE | 2018-02-22 10:53 | Medical Nutrition Therapy ---
Nutrition Anthropometrics Height (Inches): 71.00 Height (Calculated Centimeters: 180.537488 Weight (Pounds): 147 Weight (Calculated Kilograms): 66.905 BMI: 20.6 Shashi Nutrition Score: Adequate Shashi Nutrition Risk Score: 20 Dietary Referral Nutrition Risk Factors: Special Diet Nutrition Risk Comment: Diabetes; on insulin Physical Findings Physical Appearance: WNR Skin Appearance Skin Appearance: Edema Edema Location Modifier: Edema Location: Type of Edema: Degree of Edema: Gastrointestinal Symptoms GI Symtoms: Nausea Tube Present: Bowel Sounds: Recent Bowel Pattern: Stool Characteristics: Nutrition/Food History Non-compliant W/Diet Nutritional Diagnosis Nutritional Risk Acuity 1: Acute/ES Renal Nutritional Risk Acuity 4: Good Appetite Past Medical History: T2DM, Bipolar, Diabetic nephropathy, Benign hypertension, Hyperlipemia, Porcelain gallbladder, Hydronephrosis, Heart failure Nutritional Acuity: 1-High Nutrition Etiology: Physiological Causes Nutrition Problem/Etiology/Sym: Altered Nutrition Related Laboratory Values related to ARF and T2DM AEB high BUN/Creat, Low GFR, and high Glucose. Energy Requirement: 2275 ([place]-St Jeor: Actual BW X 1.5) Protein Requirement: 67 (Actual BW Kg X 1.0) Diet Type: Diabetic Nutrition Intervention: Cont diet as ordered, Check glucose Nutrition Monitoring & Eval Nutrition Goals: Eat 75-100% Meal RD Patient Assessment Time: [address] Assessment Type: RD Assessment Patient Nutrition Acuity: 1-High Follow Up Date: Feb 25, 2018 Nutritional Comment: 02/22/18 Pt admitted for ARF. Pt bipolar and has not been taking meds since . Within normal wt with BMI of 20.6. Low H/H, Glu 196, Alb 2.6, High BUN/Creat, GFR 32.7. Lantus and Lispro SSI. Receiving Diabetes diet and consuming 75-100% of meals. Follow labs, intake, etc. -MARIA VICTORIA SWEENEY Feb 22, 2018 10:53
[2018-02-22 11:21] VITALS: BP 178/105
[2018-02-22] MEDS ORDERED: INSULIN GLARGINE 100 U/ML 3 ML PEN SUBQ ONE ×2 (14:30→21:00)
[2018-02-22] MEDS ORDERED: CARVEDILOL 6.25 MG TAB PO ONE (14:30)
[2018-02-22] MEDS ORDERED: amLODIPine BESYL(*) 5 MG TAB PO ONE (14:30)
[2018-02-22] MEDS ORDERED: ENOXAPARIN 40 MG/0.4ML SYR SC ONE (14:30)
[2018-02-22] MEDS ORDERED: ASPIRIN 81 MG CHEW PO ONE (14:30)
[2018-02-22] MEDS: buPROPion SR 150 MG TABCR PO SCH (14:38)
--- NOTE | 2018-02-22 14:47 | BHS Progress Note ---
[facility] - Subjective Progress Notes Subjective Pt seen. He agrees today to start wellbutrin 150 mg q am for depression. He also agrees to follow up after discharge with Gayla LUONG, who will provide psychiatric support with medication management. I spoke with pt's sister Kimberlee yesterday, and she agrees to provide additional support to pt after discharge. She reports he has been through bouts of depression before, that he is not depressed now as in past, that he has not verbalized any SI to her or family, and she verifies that he has no firearms at home. Suicidal Ideation: None Homicidal Ideation: None [facility] - Objective Physical Exam Vital Signs Vital Signs 02/18/18 02/22/18 02/22/18 09:58 08:05 11:21 Temp 98.4 Pulse 82 Resp 18 B/P (MAP) 178/105 (129) Pulse Ox 96 O2 Delivery Room Air O2 Flow Rate 2.0 Mental Status Exam General Appearance: Casual, Well Groomed, Good Eye Contact, Cooperative, Polite, Good Interaction Speech: Clear, Spontaneous, Normal Rate, Normal Rhythm, Normal Volume, Normal Tone Mood: Euthymic (says he is feeling better today) Affect: Full and Appropriate, Calm Thought Process: Organized, Logical, Goal Directed Thought Content: No Suicidal Ideation, No Homicidal Ideation, No Delusions; Auditory Halllucinations (chronic, mild, never appeared internally preoccupied.); No Visual Hallucinations, No Thought Broadcasting, No Ideas of Reference, No Obsessions, No Compulsions, No Other Sensorium: Clear Cognition: Alert & Oriented-Person, Alert & Oriented-Place, Alert & Oriented-Time, Apnot-[id number]-[id number] Memory: Immediate, Recent, Remote Intelligence: Average Insight Judgment: Fair Result Diagram: 02/22/1852702/22/18527 [facility] Assessment and Plan [id number] Encounter Date: Feb 22, 2018 [id number] Encounter Time: 14:00 [facility] Plan: Admin/Titrate Meds, Educate Patient Multpiple Antipsychotics Used: No Problems: (1) Bipolar disorder Status: Chronic Assessment & Plan: Continue Seroquel 50 mg q HS. Add Wellbutrin SR 150 mg q am, first dose today. Please discharge pt with these prescriptions. Pt has been scheduled for out-patient appointment for psychiatric medication management with AG Edmondson, on Sunday, at 2:45 pm. ([facility] [address] [phone]. JOSE ANDREWS MD Feb 22, 2018 14:47
[2018-02-22 15:47] VITALS: BP 161/94
[2018-02-22 19:56] VITALS: BP 175/96
[2018-02-22] MEDS: QUEtiapine FUM 25 MG TAB PO SCH (20:34)
[2018-02-22] MEDS ORDERED: INSULIN HUM LISPRO 100 UN/ML 3 ML VIAL SUBQ ONE (21:00)
[2018-02-23 00:29] VITALS: BP 117/69
[2018-02-23 05:41] LABS: PLATELET COUNT, AUTOMATED 275 K/uL (150-450)
[2018-02-23 06:54] VITALS: BP 165/99
[2018-02-23] MEDS ORDERED: QUET400T53 PO (07:16)
[2018-02-23] MEDS: INSULIN HUM LISPRO 100 UN/ML 3 ML VIAL SUBQ PRN ×2 (08:11→12:00)
[2018-02-23] MEDS ORDERED: INFLUENZA VIRUS VAC 0.5ML SYR IM ONLY ONE (08:11)
[2018-02-23] MEDS: INSULIN GLARGINE 100 U/ML 3 ML PEN SUBQ SCH (08:15)
[2018-02-23] MEDS: buPROPion SR 150 MG TABCR PO SCH (08:16)
[2018-02-23] MEDS: CARVEDILOL 6.25 MG TAB PO SCH (08:16)
[2018-02-23] MEDS: ASPIRIN 81 MG CHEW PO SCH (08:16)
[2018-02-23] MEDS: ENOXAPARIN 40 MG/0.4ML SYR SC SCH (08:16)
[2018-02-23] MEDS: amLODIPine BESYL(*) 5 MG TAB PO SCH (08:16)
[2018-02-23] MEDS ORDERED: BUPR-136 PO (11:41)
[2018-02-23] MEDS ORDERED: QUET25TA PO (11:41)
--- NOTE | 2018-02-23 11:48 | Hospitalist Depart ---
Discharge Summary Reason for Hosp/Final Diag: (1) ARF (acute renal failure) Hospital Course & Plan: He presented with bilateral flank and abdominal pain for a couple of days. His creatinine was elevated to 2.8 with worsening bilateral hydronephrosis on CT. He was hydrated with 3 liters of IVF and Meneses catheter placed. His creatinine has improved. He will follow up with Dr Clifton for management of Meneses Catheter. (2) Hydronephrosis Status: Acute Hospital Course & Plan: He does have bilateral hydronephrosis which has been a chronic issue that dates back to at least 2016. It is thought to be related to bladder outlet obstruction. He self caths 4-5 times per day. However, the CT from admission showed worsening hydronephrosis. Dr. Canchola spoke with Dr. Clifton (Urology) and he recommended placing a Meneses catheter and having the patient follow up in clinic. The patient is agreeable to this plan. (3) Hyperosmolar non-ketotic state in patient with type 2 diabetes mellitus Status: Acute Hospital Course & Plan: Secondary to non-compliance. He has been restarted on a lower dose of Lantus. (4) Bipolar disorder Status: Chronic Hospital Course & Plan: He is on chronic treatment with quetiapine, but stopped over gi. Dr. Foley recommended restarting at a low dose, so we have changed from 300mg to 50mg at HS. Psychiatry has been following him and he is set up to follow up outpatient. (5) Benign hypertension Status: Chronic Hospital Course & Plan: He has been on chronic treatment with lisinopril, which is currently being held. We did restart his carvedilol and added amlodipine today. (6) HFrEF (heart failure with reduced ejection fraction) Status: Chronic Hospital Course & Plan: He reports that his EF is about 20-30%. He denies orthopnea. Lungs are clear and no edema. He has received quite a lot of IVF, so will follow closely for symptoms of exacerbation. Per patient he has refused ICD placement. (7) CAD (coronary artery disease) Status: Chronic Hospital Course & Plan: He has been started on ASA. Departure Weight (Pounds): 147 Weight (Ounces): 8.0 Result Diagram: 02/23/186 02/23/186 Condition: Improved Discharge: Home Discharge Instructions Home Meds Active Scripts Insulin Aspart (NOVOLOG) 100 Unit/1 Ml Cartridge, 100 UNIT SQ ACHS, #3 CART 0 Refills Take insulin dose based on your sliding scale at meals and at bedtime Prov:ARSH JOEL MD 02/07/16 Reported Medications Quetiapine Fumarate (Quetiapine Fumarate ER) 400 Mg Tab.er.24h, 1 TAB PO QDAY 02/23/18 Insulin Glargine,Hum.rec.anlog (Toujeo Solostar) 300 Unit/1 Ml Insuln.pen, 15 UNITS SUBQ QPM 02/18/18 Furosemide (LASIX) 20 Mg Tablet, 1 TAB PO BID, TAB 02/18/18 Finasteride (FINASTERIDE) 5 Mg Tablet, 5 MG PO QDAY 02/18/18 Multivitamin With Minerals (MEN'S ONE DAILY) 1 Each Tablet, 1 EACH PO 02/18/18 Carvedilol (CARVEDILOL) 6.25 Mg Tab, 2 TAB PO BID, TAB 02/18/18 Folic Acid (FOLIC ACID) 1 Mg Tablet, 1 MG PO QDAY, TAB 02/18/18 Ranitidine Hcl (ZANTAC) 150 Mg Tablet, 150 MG PO PRN PRN for INDIGESTION, TAB 12/06/15 Aspirin (ASPIRIN) 81 Mg Tab.chew, 81 MG PO QDAY, TAB.CHEW 11/23/15 Discontinued Reported Medications Insulin Aspart (NOVOLOG) 100 Unit/1 Ml Cartridge, SQ SS 12/06/15 Tamsulosin Hcl (TAMSULOSIN HCL) 0.4 Mg Cap.er.24h, 0.4 MG PO, CAP 11/23/15 Lisinopril (LISINOPRIL) 40 Mg Tablet, 40 MG PO QDAY, TAB 11/23/15 Quetiapine Fumarate (QUETIAPINE FUMARATE) 300 Mg Tablet, 400 MG PO 11/04/15 Aripiprazole (ABILIFY) 2 Mg Tablet, 2 MG PO QDAY, TAB Start taking every morning beginning 11/15/2015 11/04/15 Insulin Glargine (LANTUS) 100 Unit/Ml Soln, 10 UNIT SUBQ QAM, ML 11/04/15 Insulin Glargine (LANTUS) 100 Unit/Ml Soln, 20 UNIT SUBQ QPM, ML 10/30/15 Discontinued Scripts Tamsulosin Hcl (TAMSULOSIN HCL) 0.4 Mg Cap.er.24h, 0.4 MG PO QDAY, #30 CAP 0 Refills Prov:ARSH JOEL MD 02/07/16 Insulin Glargine (LANTUS) 100 Unit/Ml Soln, 0 ASDIRECTED QAM, #3 CART 0 Refills Take 10 units SubQ in the morning and 20 units SubQ in the evening Prov:ARSH JOEL MD 02/07/16 Aripiprazole (ABILIFY) 2 Mg Tablet, 2 MG PO QDAY, #30 TAB 0 Refills Prov:ARSH JOEL MD 02/07/16 Quetiapine Fumarate (QUETIAPINE FUMARATE) 300 Mg Tablet, 300 MG PO QHS, #30 TAB 0 Refills Prov:ARSH JOEL MD 02/07/16 Copies to: BENJY DE LEON APRN; MIRIAM CLIFTON MD ; Venous Thromboembolism Antithrombotics Is Pt On Any Antithrombotics?: No NETTE SANTO DO Feb 23, 2018 11:48
== END 2018-02-23 12:25 | disposition home or self-care (01) | DRG 682 ==
LOC: ER 06:56 → MED 09:03
PROVIDERS: ADMIT Family Medicine; ATTEND Family Medicine
DX: N17.9 Acute kidney failure, unspecified (principal); E11.00 Type 2 diabetes mellitus with hyperosmolarity without nonketotic hyperglycemic-hyperosmolar coma (NKHHC); I50.22 Chronic systolic (congestive) heart failure; N39.0 Urinary tract infection, site not specified; N13.30 Unspecified hydronephrosis; I11.0 Hypertensive heart disease with heart failure; F31.9 Bipolar disorder, unspecified; I25.10 Atherosclerotic heart disease of native coronary artery without angina pectoris; F17.210 Nicotine dependence, cigarettes, uncomplicated; F32.9 Major depressive disorder, single episode, unspecified; E86.0 Dehydration; E11.40 Type 2 diabetes mellitus with diabetic neuropathy, unspecified; E78.5 Hyperlipidemia, unspecified; Z79.4 Long term (current) use of insulin; Z91.14 Patient's other noncompliance with medication regimen; Z88.0 Allergy status to penicillin; I25.2 Old myocardial infarction
CPT/HCPCS: 36415; 36416; 71046; 74176; 80305; 80320; 80329; 81001; 82009; 82040; 82247; 82310; 82374; 82435; 82565; 82803; 82947; 82948; 83605; 83690; 83930; 84075; 84132; 84155; 84295; 84450; 84460; 84484; 84520; 85025; 90674; 93005; 96361; 96365; 96375; 96376; 99285; J1650; J1815; J2060; J2405; J3010; J7030; J7050; J7120; Q9967

== ENCOUNTER → 2018-10-25 | Outpatient (CLI) | payer MEDICARE ==
[2018-02-22 10:34] VITALS: BMI 20.5
[~2018-10-25] MED LIST changes: +BUPR-136 PO; +CAR6.25 PO; +FOLI-68 PO; +FURO20TA19 PO; +INSU300I SUBQ; +MULT-1167 PO; -OMEP-125 PO; +OMEP-126 PO; +QUET25TA PO; +QUET400T53 PO; -RANI-366 PO; +RANI-54 PO
== END ==
LOC: LAB 14:49
PROVIDERS: ATTEND Urology
DX: N13.30 Unspecified hydronephrosis (principal); N17.9 Acute kidney failure, unspecified; E11.9 Type 2 diabetes mellitus without complications
CPT/HCPCS: 36415; 82310; 82374; 82435; 82565; 82947; 84132; 84295; 84520